=== PATIENT | male | born 1955 | race African-American/Black ===

== ENCOUNTER 2018-05-21 15:45 | Emergency (ER) | payer MEDICARE, OTHER ==
[~2018-05-21] VITALS: Ht 170.2 cm; Wt 65.8 kg
[2018-05-21] MEDS ORDERED: IV NORMAL SALINE 1,000ML 1,000 ML IV ONE ×2 (16:00→17:45)
--- NOTE | 2018-05-21 16:10 | EKG ---
[address] [address] Test Date: 2018-05-21 Test Time: 16:00:53 Pat Name: LUIZ PIERCE Department: Room: Gender: M Display Specialist: : [id number] Requested By: BURAK GIRALDO Order Number: [id number] Reading MD: Obey Jay MD Measurements Intervals [place] Rate: 68 P: 90 AR: 192 QRS: 16 QRSD: 82 T: 81 QT: 420 QTc: 447 Interpretive Statements SINUS RHYTHM PAC'S Electronically Signed On 05-23-2018 11:03:33 [employer]REDDING [employer] EQUIPMENT OPERATOR by Obey Jay MD
--- NOTE | 2018-05-21 16:40 | PHYS DOC ---
Past History Past Medical History: COPD Past Medical History Unable to fully obtained due to altered mental status. Past Surgical History: No Surgical History Past Surgical History Unable to fully obtained due to altered mental status. Smoking: Non-smoker Alcohol Use: None Drug Use: None Social History Unable to fully obtained due to altered mental status. Adult General Chief Complaint Chief Complaint: ALTERED MENTAL STATUS HPI HPI Patient is a 62-year-old male who presents with altered mental status. The patient was unable to give an accurate history, the patient's was at the bedside. She says that he has had flulike symptoms for the past 2 days but that he was pretty much fine yesterday. [place], he took a nap and she noticed that he was not acting normally when he woke up an hour ago. She states that he lost consciousness at home and that is why she called the ambulance, during the ambulance ride he was alert and oriented. Since he has arrived he has become confused again. The patient does not know what year it is, who the president is, or quarterback of his favorite football team that he watched yesterday. HPI limited due to altered mental status. Review of Systems Review of Systems Unable to obtain due to altered mental status. Current Medications Current Medications Current Medications Medications (Trade) Dose Ordered Sig/Aparna Start Time Stop Time Status Last Admin Dose Admin Sodium Chloride 1,000 ml @ 1,000 mls/hr 1X ONCE 05/21/18 16:00 05/21/18 16:59 UNV Physical Exam Physical Exam Constitutional: Confused, labored breathing. [] HENT: Normocephalic, atraumatic, nose normal. [] Eyes: PERRL, EOMI, conjunctiva normal, no discharge. [] Cardiovascular: Heart rate regular rhythm, no murmur [] Lungs & Thorax: Bilateral breath sounds clear to auscultation [] Abdomen: Soft, no tenderness. [] Skin: Warm, dry, no erythema, no rash. [] Extremities: No tenderness, no edema. [] Neurologic: Altered mental status, NIH stroke scale 0, obeys commands but doesn' t know the year or the president, normal motor and sensory function, GCS 14 EKG EKG @ 1600 Sinus rhythm, atrial premature complexes, low limb lead voltage, T abnormality in high lateral leads Radiology/Procedures Radiology/Procedures PROCEDURE: CT HEAD WO CONTRAST PQRS Compliance Statement: One or more of the following individualized dose reduction techniques were utilized for this examination: 1. Automated exposure control 2. Adjustment of the mA and/or kV according to patient size 3. Use of iterative reconstruction technique CT HEAD WITHOUT CONTRAST History: Altered mental status, confusion Comparison: None. Procedure: Axial images are obtained of the head from the skull base through the vertex without IV contrast. Findings: The ventricles and sulci are normal for the patient's age. No mass-effect, midline shift, hemorrhage, extra-axial fluid collection, or obvious acute infarction is identified. Basilar cisterns are patent. Bone windows demonstrate no acute calvarial abnormality. Mucosal thickening of left maxillary sinus. Mastoid air cells are well aerated. IMPRESSION: No acute intracranial abnormality. Electronically signed by: Edgardo Godinez MD (05/21/2018 5:05 PM) [facility] PROCEDURE: CHEST AP ONLY Indication:Altered mental status, confusion, chills, weakness TECHNIQUE:Portable AP chest X-ray COMPARISON:None FINDINGS: Heart is normal in size. Prominent bilateral interstitial opacities are seen. No focal consolidation. No pneumothorax or pleural effusion. Visualized bony thorax is within normal limits. IMPRESSION: Findings suggests atypical/viral infection. Electronically signed by: Gurvinder Coronado DO (05/21/2018 5:21 PM) [facility] Course & Med Decision Making Course & Med Decision Making Pertinent Labs and Imaging studies reviewed. (See chart for details) Patient is a 62 YO M that presented via EMS with altered mental status. History was obtained via his and family. History and physical exam was concerning for acute infection and sepsis. CT Head was negative for intracranial abnormalities, chest x-ray shows atypical/viral pneumonia. Elevated white count at 17.4, lactic acid at 3.1, and creatinine kinase at 319 concerning for sepsis/ pneumonia. Antibiotics, IVF, and blood cultures initiated. Admission to inpatient ICU discussed with Dr. Morataya. 1800- Patient with tonic- clonic seizure-like activity. May explain elevated lactic acid better than sepsis. Sepsis antibiotics and IVF continued. Discussed change with Dr. Morataya who now requests transfer to [facility] for neurology consultation. Dr. Morataya will accept admission to ICU at [place]. Discussed findings and plan with family, who acknowledge understanding and agreement. Dragon Disclaimer Dragon Disclaimer This electronic medical record was generated, in whole or in part, using a voice recognition dictation system. Departure Departure: Impression: Primary Impression: Generalized seizure Additional Impressions: Pneumonia Lactic acidosis Disposition: OTHER ([facility] for neurology consultation and ICU admission) Admitting Physician: Pari Morataya Condition: GUARDED Referrals: KEDAR THOMAS PA-C (PCP) Critical Care Time Critical care time was 30 minutes which includes time at bedside, spent in discussion of patient's care with specialists and/or family members, with interpretation of laboratory and/or radiological studies and is exclusive of procedures. Problem Qualifiers Additional Impressions: Pneumonia Pneumonia type: due to unspecified organism Laterality: unspecified laterality Lung location: unspecified part of lung Qualified Codes: J18.9 - Pneumonia, unspecified organism BURAK GIRALDO DO May 21, 2018 16:40
[2018-05-21 17:01] LABS: BASO % 0 % (0-3); EOS % 0 % (0-3); HEMATOCRIT 46.5 % (39.0-53.0); HEMOGLOBIN 15.5 g/dL (13.0-17.5); LYMPH % 6 % (24-48); MEAN CORPUSCULAR HEMOGLOBIN 32 pg (25-35); MEAN CORPUSCULAR HGB CONC 33 g/dL (31-37); MEAN CORPUSCULAR VOLUME 96 fL (79-100); MONO # 0.4 x10^3/uL (0.0-1.1); MONO % 2 % (0-9); NEUT # 16.1 x10^3uL (1.8-7.7); NEUT % 92 % (31-73); PLATELET COUNT 359 x10^3/uL (140-400); RED BLOOD COUNT 4.85 x10^6/uL (4.30-5.70); RED CELL DISTRIBUTION WIDTH 13.9 % (11.5-14.5); WHITE BLOOD COUNT 17.4 x10^3/uL (4.0-11.0)
--- NOTE | 2018-05-21 17:09 | RAD ---
RS Compliance Statement: One or more of the following individualized dose reduction techniques were utilized for this examination: 1. Automated exposure control 2. Adjustment of the mA and/or kV according to patient size 3. Use of iterative reconstruction technique CT HEAD WITHOUT CONTRAST History: Altered mental status, confusion Comparison: None. Procedure: Axial images are obtained of the head from the skull base through the vertex without IV contrast. Findings: The ventricles and sulci are normal for the patient's age. No mass-effect, midline shift, hemorrhage, extra-axial fluid collection, or obvious acute infarction is identified. Basilar cisterns are patent. Bone windows demonstrate no acute calvarial abnormality. Mucosal thickening of left maxillary sinus. Mastoid air cells are well aerated. IMPRESSION: No acute intracranial abnormality. Electronically signed by: Edgardo Godinez MD (05/21/2018 5:05 PM) [facility]
--- NOTE | 2018-05-21 17:25 | RAD ---
Indication:Altered mental status, confusion, chills, weakness TECHNIQUE:Portable AP chest X-ray COMPARISON:None FINDINGS: Heart is normal in size. Prominent bilateral interstitial opacities are seen. No focal consolidation. No pneumothorax or pleural effusion. Visualized bony thorax is within normal limits. IMPRESSION: Findings suggests atypical/viral infection. Electronically signed by: Gurvinder Coronado DO (05/21/2018 5:21 PM) [facility]
[2018-05-21 17:35] LABS: BARBITURATES NEG (NEG); BENZODIAZEPINES NEG (NEG); CANNABINOIDS POS (NEG); COCAINE NEG (NEG); METHADONE NEG (NEG); OPIATES NEG (NEG); PHENCYCLIDINE NEG (NEG)
[2018-05-21 17:36] LABS: AMPHETAMINE/METHAMPHETAMINE NEG (NEG)
[2018-05-21 17:44] LABS: ALBUMIN 3.7 g/dL (3.4-5.0); ALBUMIN/GLOBULIN RATIO 0.7 (1.0-1.7); CALCIUM 9.2 mg/dL (8.5-10.1); CREATININE 0.9 mg/dL (0.7-1.3); GFR 102.8; MAGNESIUM 1.9 mg/dL (1.8-2.4); POTASSIUM 4.3 mmol/L (3.5-5.1); TOTAL BILIRUBIN 0.7 mg/dL (0.2-1.0); TOTAL PROTEIN 8.9 g/dL (6.4-8.2)
[2018-05-21] MEDS ORDERED: VANCOMYCIN 1.75 GM in IV NORMAL SALINE 500ML 500 ML IV ONE (17:45)
[2018-05-21] MEDS ORDERED: PIPERACILLIN/TAZOBACTAM 4.5 GM in IV NORMAL SALINE 50ML 50 ML IV ONE (17:45)
[2018-05-21 17:47] LABS: BILIRUBIN,URINE NEG (NEG); CLARITY,URINE CLEAR; COLOR,URINE YELLOW; GLUCOSE,URINE 100 mg/dL (NEG)
[2018-05-21 17:48] LABS: BACTERIA,URINE 0 /HPF (0-FEW); HYALINE CASTS, URINE FEW /HPF; NITRITE,URINE NEG (NEG); SQUAMOUS EPITHELIAL CELL,UR FEW /LPF; UROBILINOGEN,URINE 4 mg/dL (0.2 mg/dL); WBC,URINE OCC /HPF (0-4)
[2018-05-21 17:58] VITALS: BP 156/65
[2018-05-21] MEDS ORDERED: ACETAMINOPHEN 325 MG TABLET PO PRN (18:00)
[2018-05-21] MEDS ORDERED: ONDANSETRON PF 4 MG/2 ML VIAL. IV PRN (18:00)
[2018-05-21] MEDS ORDERED: LORazepam 2 MG/ML VIAL ONE (18:06)
[2018-05-21] MEDS ORDERED: PIPERACILLIN/TAZOBACTAM 4.5 GM VIAL IV ONE (18:13)
[2018-05-21 18:15] LABS: % LYMPHS 2 % (24-48); % MONOS 1 % (0-10); % SEGS 97 % (35-66)
[2018-05-21 18:17] LABS: PLT ESTIMATE ADEQUATE (ADEQUATE)
[2018-05-21 18:20] LABS: INFLUENZA A PATIENT NEGATIVE (NEGATIVE); INFLUENZA B PATIENT NEGATIVE (NEGATIVE)
[2018-05-21] MEDS ORDERED: VANCOMYCIN 1 GM VIAL. ONE (18:20)
[2018-05-21] MEDS ORDERED: IV NORMAL SALINE 50ML 50 ML ONE (18:20)
[2018-05-21] MEDS ORDERED: IV NORMAL SALINE 500ML 500 ML ONE (18:20)
== END 2018-05-21 19:15 | disposition short-term general hospital (02) ==
LOC: ER 15:45 → UNDOADMIN 18:08 → ICU 18:08 → ER 19:15
DX: G40.89 Other seizures (principal); J18.9 Pneumonia, unspecified organism; E87.2 Acidosis; R41.82 Altered mental status, unspecified; J44.9 Chronic obstructive pulmonary disease, unspecified
CPT/HCPCS: 36415; 70450; 71045; 80053; 80307; 81001; 82140; 82553; 83605; 83735; 84484; 85007; 85025; 87040; 87804; 93005; 96361; 96365; 96366; 96368; 99285; G0480; J1956; J2543; J7030